=== PATIENT | female | born 1980 | race Caucasian/White ===

== ENCOUNTER 2021-09-09 08:00 | Outpatient (CLI) | payer OTHER ==
--- NOTE | 2021-09-09 15:29 | XRAY Report ---
PROCEDURE: Ankle 3 View LT INDICATIONS: LEFT ANKLE PAIN TECHNIQUE: 3 views of the ankle were acquired. COMPARISON: None FINDINGS: Bones: There is a comminuted mildly to moderately displaced fracture seen of the distal fibula at the level of the syndesmosis, with an additional fracture seen involving the distal fibular tip. There is a mildly to moderately displaced intra-articular fracture seen involving the medial malleolu s, with confirmation. The posterior malleolus appears intact. On the lateral view, the talus appears irregular. Soft tissues: Associated soft tissue swelling is seen. IMPRESSION: Intra-articular fractures seen of the lateral malleolus and the medial malleolus. A talar fracture is also suspected. If it would be helpful for clinical management decision making, please consider a dedicated ankle CT for further evaluation. Reviewed by: Georges Rodrigues MD on 09/09/2021 2:28 PM SIM Approved by: Georges Rodrigues MD on 09/09/2021 2:28 PM SIM Station ID: [id number]
== END 2021-09-09 23:59 ==
LOC: DI.S 08:00
PROVIDERS: ATTEND Emergency Medicine
DX: S82.832A Other fracture of upper and lower end of left fibula, initial encounter for closed fracture (principal); R93.6 Abnormal findings on diagnostic imaging of limbs

== ENCOUNTER 2021-09-11 16:44 | Outpatient (CLI) | payer OTHER ==
--- NOTE | 2021-09-11 18:26 | CT Report ---
PROCEDURE: LOWER EXTREMITY WO - LT INDICATIONS: OTHER FRACTURE OF UPPER/LOWER END L FIBULA TECHNIQUE: Noncontrast 3-mm axial sections acquired from the distal tibial shaft to the talar dome, with coronal and sagittal reformats. For radiation dose reduction, the following was used: automated exposure c ontrol, adjustment of mA and/or kV according to patient size. COMPARISON: None. FINDINGS: Comminuted and displaced fractures of the talus, lateral malleolus, and medial malleolus, all with in tra-articular extension. Mild widening of the ankle mortise. Large ankle joint effusion. Impression: Comminuted displaced fractures of the talus, lateral malleolus, medial malleolus, all wit h intra-articular extension. Associated mild ankle mortise widening. Reviewed by: Galo Ibarra MD on 09/11/2021 6:24 PM PDT Approved by: Galo Ibarra MD on 09/11/2021 6:24 PM PDT Station ID: [id number]
== END 2021-09-11 16:45 | disposition home or self-care (01) ==
LOC: DI 16:44
PROVIDERS: ATTEND Orthopaedic Surgery
DX: S82.842A Displaced bimalleolar fracture of left lower leg, initial encounter for closed fracture (principal); S92.142A Displaced dome fracture of left talus, initial encounter for closed fracture

== ENCOUNTER 2021-09-13 10:21 | Day surgery (SDC) | payer OTHER ==
[2021-09-13] MEDS ORDERED: ACETAMINOPHEN 500 MG TABLET PO ONE (10:34)
[2021-09-13] MEDS ORDERED: GABAPENTIN 400 MG CAPSULE ONE (10:34)
[2021-09-13] MEDS ORDERED: CELECOXIB 100 MG CAPSULE PO ONE (10:34)
[2021-09-13] MEDS ORDERED: CEFAZOLIN SODIUM IN 0.9 % NACL 2 GM/50 ML BAG IV ONE (10:34)
[2021-09-13 10:57] LABS: HCG UR QUAL NEGATIVE
[2021-09-13] MEDS ORDERED: ONDANSETRON 4 MG/2 ML VIAL ONE (11:00)
[2021-09-13] MEDS ORDERED: SODIUM CHLORIDE 0.9% 10 ML VIAL IVP ONE (11:00)
[2021-09-13] MEDS ORDERED: DEXAMETHASONE 4 MG/ML VIAL ONE (11:00)
[2021-09-13] MEDS ORDERED: ROPIVACAINE 0.5% PF 30 ML VIAL ONE (11:00)
[2021-09-13] MEDS ORDERED: PROPOFOL 200 MG/20 ML VIAL IVP ONE (11:00)
[2021-09-13] MEDS ORDERED: KETOROLAC 30 MG/ML VIAL ONE (11:00)
[2021-09-13] MEDS ORDERED: LIDOCAINE-MPF 2% 5 ML VIAL ONE (11:00)
[2021-09-13] MEDS ORDERED: MIDAZOLAM 2 MG/2 ML VIAL ONE (11:00)
[2021-09-13] MEDS ORDERED: DEXAMETHASONE 10 MG/ML VIAL ONE (11:01)
[2021-09-13] MEDS ORDERED: LACTATED RINGERS 1,000 ML IV ONE ×2 (11:05→17:25)
--- NOTE | 2021-09-13 11:34 | ANESTHESIA ---
Pre-Anesthesia VS, & Labs - Diagnosis left ankle fracture - Procedure ORIF left ankle Vital Signs: Temp Pulse Resp BP Pulse Ox 37.0 C 91 16 119/77 100 09/13/21 11:06 09/13/21 11:06 09/13/21 11:06 09/13/21 11:06 09/13/21 11:06 Height: 5 ft 4 in Weight (kg): 47.63 kg Body Mass Index: 18.0 BMI Classification: Underweight - NPO >8 hours - Is Patient ?: No - Lab Results Current Lab Results: Laboratory Tests 09/13/21 11:08: POC Whole Bld Glucose 89 Lab results reviewed: Yes Home Medications and Allergies Allergies/Adverse Reactions: Allergies Allergy/AdvReac Type Severity Reaction Status Date / Time latex AdvReac Hives Verified 09/13/21 10:56 Anes History & Medical History - Anesthetic History Anesthesia Complications: reports: No previous complications Family history of Anesthesia Complications: Denies Family history of Malignant Hyperthermia: Denies - Medical History Cardiovascular: reports: None Pulmonary: reports: None Gastrointestinal: reports: None Urinary: reports: None Musculoskeletal: reports: None Endocrine/Autoimmune: reports: None Skin: reports: None - Surgical History Gynecologic: reports: section Exam General: Alert, Oriented x3, Cooperative, No acute distress Dental: WNL Mouth Openin Fingerbreadth Neck Mobility: Normal Mallampati classification: II Respiratory: Lungs clear, Normal breath sounds, No respiratory distress, No accessory muscle use Cardiovascular: Regular rate, Normal S1, Normal S2, No murmurs Plan Anesthesia Type: General, Popliteal Block Consent for Procedure(s) Verified and Reviewed: Yes Code Status: Attempt Resuscitation ASA classification: 1-Healthy patient Is this case an emergency?: No
[2021-09-13] MEDS ORDERED: MORPHINE 2 MG/ML CARPUJECT IVP PRN (11:35)
[2021-09-13] MEDS ORDERED: fentaNYL 100 MCG/2 ML VIAL IVP PRN (11:35)
[2021-09-13] MEDS ORDERED: ONDANSETRON 4 MG/2 ML VIAL IVP PRN (11:35)
[2021-09-13] MEDS ORDERED: METOCLOPRAMIDE 10 MG/2 ML VIAL IVP PRN (11:35)
[2021-09-13] MEDS ORDERED: ATROPINE ABBOJECT 1 MG/10 ML SYRINGE IVP PRN (11:35)
[2021-09-13] MEDS ORDERED: ePHEDrine 50 MG/ML VIAL IVP PRN (11:35)
[2021-09-13] MEDS ORDERED: NALOXONE 0.4 MG/ML VIAL IVP PRN (11:35)
[2021-09-13] MEDS ORDERED: HYDROmorphone 0.5 MG/0.5 ML SYRINGE IVP PRN (11:35)
[2021-09-13] MEDS ORDERED: LACTATED RINGERS 1,000 ML IV SCH (12:00)
[2021-09-13] MEDS ORDERED: oxyCODONE 5 MG TABLET PO PRN (13:03)
[2021-09-13] MEDS ORDERED: KETOROLAC 15 MG/ML VIAL IVP STA (13:03)
[2021-09-13] MEDS ORDERED: ROCURONIUM 50 MG/5 ML VIAL ONE (13:06)
[2021-09-13] MEDS ORDERED: ACETAMINOPHEN 1,000 MG/100 ML 100 ML IV ONE (13:39)
[2021-09-13] MEDS ORDERED: VANCOMYCIN 1 GM VIAL ONE (13:40)
[2021-09-13] MEDS ORDERED: BUPIVACAINE 0.25% PF 30 ML VIAL ONE (13:40)
[2021-09-13] MEDS ORDERED: BUPIVACAINE 0.25% PF 30 ML VIAL SUBQ ONE (14:14)
[2021-09-13] MEDS ORDERED: VANCOMYCIN 1 GM VIAL MC ONE (14:15)
[2021-09-13] MEDS ORDERED: fentaNYL 100 MCG/2 ML VIAL ONE (14:17)
[2021-09-13] MEDS ORDERED: SUGAMMADEX 200 MG/2 ML VIAL IVP ONE (15:54)
--- NOTE | 2021-09-13 16:38 | XRAY Report ---
PROCEDURE: OR C-Arm Procedure INDICATIONS: ORIF LEFT ANKLE TECHNIQUE: 3 intraoperative views of the ankle were obtained. COMPARISON: X-ray ankle 09/09/2021 FINDINGS: Intraoperative views of the ankle demonstrate distal fibular fixation. In addition medial distal tibi al fixation is present. Surgical screws are noted overlying the talus. There is good anatomic alignme nt. IMPRESSION: Intraoperative ORIF. Reviewed by: Leanna Gilbert MD on 09/13/2021 4:37 PM PDT Approved by: Leanna Gilbert MD on 09/13/2021 4:37 PM PDT Station ID: [id number]
--- NOTE | 2021-09-13 17:20 | OPERATIVE REPORT ---
Operative Report - General Procedure Date: 09/13/21 Planned Procedure: Open reduction internal fixation bimalleolar fracture left ankle and open reduction internal fixation talus fracture left ankle Pre-Op Diagnosis: Displaced bimalleolar fracture left ankle and displaced talar body fracture Procedure Performed: Open reduction internal fixation of medial malleolus, open reduction internal fixation lateral malleolus, open reduction internal fixation body of talus fracture Post Op Diagnosis: Same as preoperative diagnosis - Procedure Note Primary Surgeon: Joe Chi MD Secondary Surgeon: Awais WALLS Anesthesia Provider: Al Sam CRNA Anesthesia Technique: General ET tube, Regional block Estimated Blood Loss (mL): 50 Indications: This is a relatively healthy, active 41-year-old woman who sustained an injury to her left ankle almost 2 weeks ago in [place], [place]. She states that 15, 4 x 8 feet plywood sheets that were strapped to the garage wall fell against her while standing, knocking her down and injuring left ankle. She was seen after the injury at [facility] in [facility] where she was placed in a splint but apparently did not do any follow-up and [place] now [place]. She was first seen 2 days ago in my office, had CT scan performed on Saturday and surgery today, Saturday. Her swelling had resolved well, skin intact and fracture blisters healed. She had 2 small fracture blisters pos teriorly. Her x-rays and CT scan showed a large medial malleolus fracture that entered the plafond and disrupting the articular surface. She has had a transverse fracture of the lateral malleolus above the ankle mortise and a small avulsion at the very tip of the lateral malleolus. She had a displaced posterior talar body fracture with some comminution and articular step-off. Findings: The fractures of the medial and lateral malleoli were as described by x-ray. The medial malleolus fracture did enter the tibial plafond. There is a very small 1 to 2 mm articular fragment within the joint that was extracted. The lateral malleolus was transverse fracture above the ankle mortise. The lateral malleolus fracture was not comminuted but there was an additional fracture at the very tip of the lateral malleolus and had part of the anterior talofibular ligament attachment. The talar body fracture was posterior, displaced posteriorly and medially so that there was a step-off in the articular surface. There was some comminution and disruption of the articular cartilage but no unstable cartilaginous lesions that could be repaired. Complications: None - Other Other Information/Narrative: That the patient received anesthesia both general and peripheral nerve block. She was brought to the operating room, placed in the supine position with a gel bump beneath the left buttock. A pneumatic tourniquet was applied to the proximal left thigh over cast padding. The left lower extremity was prepped and draped in sterile manner in the usual fashion. A timeout procedure was performed by the entire operating room team and all were in agreement. The left leg was exsanguinated by elevation. The pneumatic tourniquet was elevated to 250 mmHg. Both medial lateral incisions were utilized beginning with the medial incision first. The medial incision was started just proximal to the medial malleolus, extended over the tip of the malleolus and curved to the talonavicular area. The fracture was exposed. An anterior medial capsulotomy was performed. Care was taken to preserve the deltoid ligament. An osteotome was used to mobilize the fracture. The fracture was retracted distally exposing the posterior talar body fracture which was unstable and had some articular disruption posteriorly. A second incision was made laterally beginning over the distal fibula and extending over the tip of the lateral malleolus to the fourth metatarsal. The fracture was identified subperiosteally. An osteotome was used to retract the lateral malleolus to expose the lateral talar body. By having both medial and lateral visualization, the talar body fracture could be stabilized. Temporary fixation to the talar body was achieved by inserting guidepins across the fracture from medial to lateral, visualizing the fracture with some traction and plantar flexion as the fracture of the talar body was posteromedial. 2 guidepins were used to transfix the fracture after it had been reduced. The talar body fracture was stabilized with 2 Arthrex cannulated 3.5 mm headless screws. The screws were inserted from medial to lateral and slightly countersunk medially. Care was taken to avoid penetration of the screws laterally. The talar body appeared to be fracture after stabilization with these 2 screws. Next the medial malleolus was addressed reflecting it back to its normal anatomic position. The medial malleolus was stabilized with a K wire inserted from the tip and going across the fracture. The [employer] medial buttress plate was applied with 2 tines engaging the tip of the medial malleolus. A K wire was inserted through the plate distally. A screw was placed proximally in the oblong hole. Bicortical fixation was achieved, the medial buttress plate conformed well and provided excellent fixation. Additional screws were placed distally in the medial buttress plate. The lateral malleolus was then reduced and stabilized with a fibular locking plate. The fracture was temporarily stabilized with a K wire and bone clamp. The plate was applied and stabilized with a K wire and a push pin. Screws were placed distally and proximally. A intramedullary screw was inserted from the tip and measured about 44 mm, partially threaded screw. The fracture fixation appeared to be very good with the lateral malleolus. The syndesmosis appeared to be stable. There was some lateral instability because of the avulsion fracture at the tip and this was stabilized using a suture anchor in the lateral malleolus, suture tack by Arthrex. The suture was then taken through the avulsed fragment to stabilize the lateral ligament complex. The ankle mortise had good range of motion and good stability. Intraoperative x-rays were obtained including AP, lateral, mortise, Broden's view and a CanaleThe tourniquet was deflated after 112 minutes. Vancomycin powder was then placed over both medial and lateral plates. The fascia was closed with 2-0 strata fix suture, subcutaneous suture was 3-0 strata fix. The skin was closed with stainless steel cristofer, Xeroform, gauze dressing and a well-padded short leg splint hold the ankle in neutral dorsiflexion. She tolerated the procedure well. A physician esol teacher assistant was felt to be medically necessary to provide assistance in retraction and protection of vital structures, facilitate internal fixation, application of splint and wound closure. view.
--- NOTE | 2021-09-13 17:51 | ANESTHESIA POST OP EVALUATION ---
Anesthesia Post Eval - Post Anesthesia Eval Vitals: Last Vital Signs Temp 37.0 C 09/13/21 17:45 Pulse 90 09/13/21 17:45 Resp 15 09/13/21 17:45 BP 102/55 L 09/13/21 17:45 Pulse Ox 99 09/13/21 17:45 CV Function Including HR & BP: Stable Pain Control: Satisfactory Nausea & Vomiting: Negative Mental Status: Baseline Respiratory Status: Airway Patent Hydration Status: Satisfactory Anesthesia Complications: None
[2021-09-13 18:25] VITALS: BP 105/72
== END 2021-09-13 10:22 | disposition home or self-care (01) ==
LOC: SDS 10:21
PROVIDERS: ATTEND Orthopaedic Surgery
DX: S82.842A Displaced bimalleolar fracture of left lower leg, initial encounter for closed fracture (principal); S92.122A Displaced fracture of body of left talus, initial encounter for closed fracture; R63.6 Underweight; Z68.1 Body mass index [BMI] 19.9 or less, adult
CPT/HCPCS: 27814; 28445; 81025; A9270; C1713; J0131; J0690; J3370; J7120

== ENCOUNTER 2021-11-23 06:00 | Outpatient (CLI) | payer MEDICAID, OTHER ==
--- NOTE | 2021-11-23 16:45 | XRAY Report ---
PROCEDURE: Ankle 3 View LT INDICATIONS: ANKLE ORIF TECHNIQUE: 3 views of the ankle were acquired. COMPARISON: 09/09/2021. FINDINGS: Bones: Postsurgical changes compatible with ORIF of the medial malleolus, lateral malleolus and talar fractures. Orthopedic hardware is in expected position. Orthopedic hardware is intact. Fracture frag ments are in anatomic alignment following ORIF. Soft tissues: No tibiotalar joint effusion. Achilles tendon appears normal. IMPRESSION: Expected postsurgical change for ORIF of left lateral malleolus, left medial malleolus a nd talus fractures. Reviewed by: Anna Jean-Baptiste MD, PhD on 11/23/2021 4:44 PM PDT Approved by: Anna Jean-Baptiste MD, PhD on 11/23/2021 4:44 PM PDT Station ID: [id number]
== END 2021-11-23 23:59 | disposition home or self-care (01) ==
LOC: DI.WOS 06:00
PROVIDERS: ATTEND Physician Assistant Surgical
DX: S82.62XD Displaced fracture of lateral malleolus of left fibula, subsequent encounter for closed fracture with routine healing (principal); S82.52XD Displaced fracture of medial malleolus of left tibia, subsequent encounter for closed fracture with routine healing; S92.142D Displaced dome fracture of left talus, subsequent encounter for fracture with routine healing

== ENCOUNTER 2022-01-16 11:00 | Outpatient (CLI) | payer OTHER ==
--- NOTE | 2022-01-16 16:34 | XRAY Report ---
PROCEDURE: Ankle 3 View LT INDICATIONS: ANKLE ORIF TECHNIQUE: 3 views of the ankle were acquired. COMPARISON: X-ray ankle 11/23/2021 FINDINGS: Bones: ORIF of both the medial and lateral malleolus are present. In addition, talar fusion is presen t. Hardware is intact without evidence of hardware fracture or periprosthetic lucency to suggest loos ening. There is stable osseous alignment. Fracture lucencies are slightly less prominent. Disuse oste openia is noted partially within the midfoot. Ankle mortise is normally aligned. No suspicious bony lesions. Soft tissues: No tibiotalar joint effusion. Achilles tendon appears normal. IMPRESSION: Stable appearance of lateral and medial malleolar fixation as well as talar fusion. Reviewed by: Leanna Gilbert MD on 01/16/2022 4:33 PM PDT Approved by: Leanna Gilbert MD on 01/16/2022 4:33 PM PDT Station ID: [id number]
== END 2022-01-16 23:59 | disposition home or self-care (01) ==
LOC: DI.WOS 11:00
PROVIDERS: ATTEND Orthopaedic Surgery
DX: S92.122 Displaced fracture of body of left talus (principal)

== ENCOUNTER 2022-04-02 08:00 | Outpatient (CLI) | payer OTHER ==
--- NOTE | 2022-04-02 13:15 | XRAY Report ---
PROCEDURE: Ankle 3 View LT INDICATIONS: LEFT ANKLE FX/ORIF TECHNIQUE: 3 views of the ankle were acquired. COMPARISON: Left ankle radiographs 01/16/2022. FINDINGS: Bones: Prior plate and screw fixation of the medial and lateral malleoli. Talar screws are also prese nt as before. Hardware appears intact. No definite acute fracture visualized. Ankle mortise is chanda lly aligned. No suspicious bony lesions. Soft tissues: No definite tibiotalar joint effusion. IMPRESSION: Similar postsurgical changes of the ankle. No definite acute findings identified. Reviewed by: Daniel Marin MD on 04/02/2022 1:13 PM PDT Approved by: Daniel Marin MD on 04/02/2022 1:13 PM PDT Station ID: [id number]
== END 2022-04-02 23:59 | disposition home or self-care (01) ==
LOC: DI.WOS 08:00
PROVIDERS: ATTEND Orthopaedic Surgery
DX: S92.122A Displaced fracture of body of left talus, initial encounter for closed fracture (principal); S82.842A Displaced bimalleolar fracture of left lower leg, initial encounter for closed fracture

== ENCOUNTER 2022-06-05 14:13 | Outpatient (CLI) | payer OTHER ==
--- NOTE | 2022-06-05 18:05 | XRAY Report ---
PROCEDURE: Ankle 3 View LT INDICATIONS: LEFT ANKLE ORIF TECHNIQUE: 3 views of the ankle were acquired. COMPARISON: Left ankle radiographs 04/02/2022 FINDINGS: Postsurgical changes from bimalleolar plate and screw fixation. 2 screws also present within the talu s as before. Hardware appears intact. Alignment appears similar to before. Bones about the ankle appe ar demineralized. IMPRESSION: Postsurgical changes of the left ankle. Alignment appears similar to before. Reviewed by: Daniel Marin MD on 06/05/2022 6:04 PM PST Approved by: Daniel Marin MD on 06/05/2022 6:04 PM PST Station ID: [id number]
== END 2022-06-05 14:14 | disposition home or self-care (01) ==
LOC: DI.WOS 14:13
PROVIDERS: ATTEND Orthopaedic Surgery
DX: S82.842A Displaced bimalleolar fracture of left lower leg, initial encounter for closed fracture (principal)

== ENCOUNTER 2022-08-06 16:18 | Outpatient (CLI) | payer MEDICAID, OTHER ==
--- NOTE | 2022-08-06 22:13 | XRAY Report ---
PROCEDURE: Ankle 3 View LT INDICATIONS: LEFT ANKLE ORIF TECHNIQUE: 3 views of the ankle were acquired. COMPARISON: X-ray ankle 06/05/2022 FINDINGS: Bones: ORIF of the distal fibula and medial malleolus are present. Patellar fixation screws are also present. All hardware is intact. Ankle mortise is normally aligned. No suspicious bony lesions. Soft tissues: No tibiotalar joint effusion. Achilles tendon appears normal. IMPRESSION: Stable appearance of ankle fixation as above. Reviewed by: Leanna Gilbert MD on 08/06/2022 10:11 PM [facility] Approved by: Leanna Gilbert MD on 08/06/2022 10:11 PM [facility] Station ID: [id number]
== END 2022-08-06 16:26 | disposition home or self-care (01) ==
LOC: DI.WOS 16:18
PROVIDERS: ATTEND Orthopaedic Surgery
DX: S82.845D Nondisplaced bimalleolar fracture of left lower leg, subsequent encounter for closed fracture with routine healing (principal)